=== PATIENT | male | born 1945 | race Caucasian/White ===

== ENCOUNTER 2017-08-17 12:01 | Emergency (ER) | payer MEDICARE, BC ==
[~2017-08-17] VITALS: Ht 167.6 cm; Wt 85.0 kg
[2017-08-17] MEDS ORDERED: AMBIEN5 MG PO ×2 (12:13→12:14)
[2017-08-17] MEDS ORDERED: TRAZODONE50 MG PO (12:13)
[2017-08-17] MEDS ORDERED: LIPITOR20 M1 PO (12:13)
[2017-08-17] MEDS ORDERED: GLIPIZIDE10 MG PO (12:14)
[2017-08-17] MEDS ORDERED: ZESTRIL10 M1 PO (12:14)
[2017-08-17] MEDS ORDERED: OMEPRAZOLE20 MG PO (12:15)
[2017-08-17] MEDS ORDERED: ZESTRIL40 MG PO (13:01)
[2017-08-17] MEDS ORDERED: GLUCOTROL10 MG PO (13:01)
[2017-08-17] MEDS ORDERED: NAPROSYN500 MG PO (14:23)
[2017-08-17] MEDS ORDERED: FLEXERIL PO (14:23)
[2017-08-17 14:40] VITALS: BP 139/81
== END 2017-08-17 14:40 | disposition home or self-care (01) ==
LOC: ED 12:01
DX: S16.1XXA Strain of muscle, fascia and tendon at neck level, initial encounter (principal); M54.12 Radiculopathy, cervical region; X50.0XXA Overexertion from strenuous movement or load, initial encounter; Y93.89 Activity, other specified; Y92.009 Unspecified place in unspecified non-institutional (private) residence as the place of occurrence of the external cause

== ENCOUNTER → 2018-10-09 | Outpatient (REF) | payer MEDICARE, BC ==
[~2018-10-09] MED LIST: AMBIEN5 MG PO; FLEXERIL PO; GLIPIZIDE10 MG PO; GLUCOTROL10 MG PO; LIPITOR20 M1 PO; NAPROSYN500 MG PO; OMEPRAZOLE20 MG PO; TRAZODONE50 MG PO; ZESTRIL10 M1 PO; ZESTRIL40 MG PO
[2018-10-09 08:35] LABS: HEMATOCRIT 39.3 % (39.0-50.0); HEMOGLOBIN 13.4 g/dl (14.0-18.0); MEAN CELL VOLUME 84.9 fL CALC (80.0-100.0); MEAN CORPUSCULAR HGB 28.9 pG CALC (26.0-32.0); MEAN CORPUSCULAR HGB CONC 34.1 g/L CALC (32.0-36.0); NEUT# 3.68 thou/uL (1.82-7.42); RED BLOOD COUNT 4.63 mill/uL (4.70-6.10); RED CELL DISTRI WIDTH 12.6 % (11.5-15.5)
[2018-10-09 08:53] LABS: ALBUMIN 4.3 g/dL (3.2-5.0); BILIRUBIN, TOTAL 0.4 mg/dL (0.0-1.4); CHOLESTEROL HDL RATIO 5.3 (<4.4 (CALC)); CREATININE 1.6 mg/dL (0.7-1.3); POTASSIUM 4.1 mmol/l (3.5-5.1); TOTAL PROTEIN 6.9 g/dL (6.3-8.2)
[2018-10-09 09:21] LABS: TSH, 3RD GENERATION 13.6 uIU/mL (0.47 - 4.68)
== END | disposition home or self-care (01) ==
LOC: LAB 08:17
PROVIDERS: ATTEND Nurse Practitioner Adult Health
DX: R94.6 Abnormal results of thyroid function studies (principal); E11.9 Type 2 diabetes mellitus without complications; I10 Essential (primary) hypertension; E78.49 Other hyperlipidemia

== ENCOUNTER 2019-08-11 21:57 | Observation (INO) | payer MEDICARE, BC ==
[~2019-08-11] VITALS: Ht 167.6 cm; Wt 80.5 kg
--- NOTE | 2019-08-11 21:57 | NUR ---
To room 15 via stretcher by ems
[2019-08-11] MEDS ORDERED: AMLODIPINE BESY10 MG PO (22:29)
[2019-08-11] MEDS ORDERED: CITALOPRAM20 M1 PO (22:30)
[2019-08-11] MEDS ORDERED: TAMSULOSIN0.4 MG PO (22:31)
[2019-08-11] MEDS ORDERED: LEVOTHYROXIN75 MCG PO (22:33)
[2019-08-11] MEDS ORDERED: MIRAPEX0.125 MG PO (22:34)
[2019-08-11 22:35] LABS: HEMATOCRIT 38.3 % (39.0-50.0); HEMOGLOBIN 13.2 g/dl (14.0-18.0); IMMATURE GRANULOCYTES 0.7 % (0.0-5.0); MEAN CELL VOLUME 82.4 fL CALC (80.0-100.0); MEAN CORPUSCULAR HGB 28.4 pG CALC (26.0-32.0); MEAN CORPUSCULAR HGB CONC 34.5 g/L CALC (32.0-36.0); NEUT# 8.2 thou/uL (1.82-7.42); RED BLOOD COUNT 4.65 mill/uL (4.70-6.10); RED CELL DISTRI WIDTH 12.4 % (11.5-15.5)
--- NOTE | 2019-08-11 22:35 | NUR ---
PT TO CT. WHEN [facility]T WENT IN TO TAKE PT TO CT HE ASKED PT WHAT HAPPENED AND STATED "HE HAD A SEIZURE OR SOMETHING".
[2019-08-11 22:40] LABS: PROTHROMBIN TIME 10.7 SECONDS (9.0-12.5)
[2019-08-11] MEDS ORDERED: CHLORTHALID25 MG PO (22:40)
[2019-08-11 22:41] LABS: ALKALINE PHOSPHATASE 65 u/l (38-126); ANION GAP 22 (6-22 (CALC)); BUN 37 mg/dL (8-23); BUN/CREATININE RATIO 15 (12-20 (CALC)); CARBON DIOXIDE 20 mmol/l (22-30); CHLORIDE 96 mmol/l (95-108); CREATININE 2.4 mg/dL (0.7-1.3); GFR 27 ML/MIN (>=60 (CALC)); GFR FOR AFR.AMER. 32 ML/MIN (>=60 (CALC)); SGOT/AST 30 u/l (19-48); SODIUM 134 mmol/l (137-146); TOTAL PROTEIN 6.7 g/dL (6.3-8.2)
[2019-08-11] MEDS ORDERED: METFORMIN HCL1000 MG PO (22:42)
[2019-08-11 22:45] LABS: BILIRUBIN, TOTAL 0.3 mg/dL (0.0-1.4)
[2019-08-11 22:52] LABS: MYOGLOBIN 127 ng/mL (0 - 121)
--- NOTE | 2019-08-11 23:20 | NUR ---
ORTHO BP DONE. PT DID NOT HAVE ANY DIZZINESS OR ANY OTHER SYMPTOMS. INFORMED PT IT'S NOT A GOOD IDEA TO TAKE SOME OF THE MEDICATION HE TAKES AND TO DRINK ALCOHOL.
--- NOTE | 2019-08-12 00:18 | NUR ---
REPORT REC FROM Marleen POTTER RN
--- NOTE | 2019-08-12 00:20 | NUR ---
REPORT GIVEN TO MIGUEL HARDEN. PT DENIES ANY DIZZINESS AT THIS TIME.
--- NOTE | 2019-08-12 00:30 | NUR ---
Admission Note Report Given to: MIGUEL HARDEN Transported by: X Wheelchair Stretcher Transported with: X Nurse Transporter X Patent IV O2 X Silverware Washer Location: ICU X [facility]2
--- NOTE | 2019-08-12 00:32 | NUR ---
PT ARRIVED TO PR VIA WC ACCOMPANIED BY Marleen POTTER RN. NO DISTRESS NOTED. AT BEDSIDE. PT DENIES ANY DIZZINESS OR LIGHTHEADEDNESS. STEADY GAIT OBSERVED WHILE PT AMBULATED TO THE BATHROOM. PER PERLA VILLALBA, ORTHOSTATIC BLOOD PRESSURES WERE OBTAINED AND THEY WERE NEGATIVE. URINE OBTAINED TO SEND DOWN TO LAB. PT DENIES ANY PAIN OR DISCOMFORT. COMPRESSION SOCKS APPLIED. ORIENTED PT TO ROOM. DISCUSSED POC. ASSESSMENT COMPLETED. CALL LIGHT IN REACH. CONTINUE TO MONITOR.
[2019-08-12 02:33] LABS: URINE BILIRUBIN - DIPSTICK NEGATIVE (NEGATIVE); URINE BLOOD DIPSTICK NEGATIVE (NEGATIVE); URINE COLOR YELLOW; URINE GLUCOSE - DIPSTICK NEGATIVE (NEGATIVE); URINE KETONE TRACE mg/dL (NEGATIVE); URINE LEUK ESTERASE NEGATIVE (NEGATIVE); URINE NITRITE - DIPSTICK NEGATIVE (Negative); URINE PH 5.5 (4.5-8.0); URINE PROTEIN - DIPSTICK 100 mg/dL (NEG-TRACE); URINE SPECIFIC GRAVITY 1.025; URINE UROBILINOGEN - DIPSTICK 0.2 E.U./dL (0.2)
[2019-08-12 02:34] LABS: URINE EPITHELIAL CELLS FEW EPI/hpf (0-FEW)
--- NOTE | 2019-08-12 03:30 | NUR ---
PT SITTING IN BED WATCHING TV WITH AT BEDSIDE. NO DISTRESS NOTED. CALL LIGHT IN REACH. CONTINUE TO MONITOR.
[2019-08-12 04:25] VITALS: BP 124/60
[2019-08-12 04:41] LABS: CREATININE 2.3 mg/dL (0.7-1.3); POTASSIUM 3.7 mmol/l (3.5-5.1)
--- NOTE | 2019-08-12 05:13 | NUR ---
PT SITTING ON THE SIDE OF THE BED WITH AT BEDSIDE. NO DISTRESS OR COMPLAINTS AT THIS TIME. CALL LIGHT IN REACH. CONTINUE TO MONITOR.
[2019-08-12 07:36] VITALS: BP 130/76
--- NOTE | 2019-08-12 09:00 | NUR ---
PT AWAKE, ALERT, AMBULATORY. LUNGS CLEAR, RA. NO DIZZINESS, LIGHTHEADEDNESS. AT BEDSIDE. VSS.
[2019-08-12] MEDS ORDERED: JANUVIA50 MG PO (10:30)
[2019-08-12 10:55] VITALS: BP 145/77
--- NOTE | 2019-08-12 12:10 | NUR ---
PT HAS BEEN DISCHARGED TO HOME. PT CONTINUES WITHOUT SYNCOPE OR LIKEWISE. PT VERBALIZES UNDERSTANDING OF DC INSTRUCTIONS, AMBULATES TO LOBBY, HAVING REFUSED WHEELCHAIR. PT LEAVES [facility] IN STABLE CONDITION.
== END 2019-08-12 12:08 | disposition home or self-care (01) ==
LOC: ED 21:57 → ED-I 23:48 → ED 08-12 00:03 → MS2 08-12 00:04
PROVIDERS: Family Medicine; ADMIT Internal Medicine; ATTEND Internal Medicine
DX: I95.9 Hypotension, unspecified (principal); E87.6 Hypokalemia; I12.9 Hypertensive chronic kidney disease with stage 1 through stage 4 chronic kidney disease, or unspecified chronic kidney disease; E11.22 Type 2 diabetes mellitus with diabetic chronic kidney disease; N18.3 Chronic kidney disease, stage 3 (moderate); E03.9 Hypothyroidism, unspecified; E87.1 Hypo-osmolality and hyponatremia; E78.5 Hyperlipidemia, unspecified; R01.1 Cardiac murmur, unspecified; K21.9 Gastro-esophageal reflux disease without esophagitis; M19.90 Unspecified osteoarthritis, unspecified site; G25.81 Restless legs syndrome; F32.9 Major depressive disorder, single episode, unspecified; Z87.891 Personal history of nicotine dependence; Z79.84 Long term (current) use of oral hypoglycemic drugs; R55 Syncope and collapse
CPT/HCPCS: G0378